=== PATIENT | female | born 1950 | race Native Hawaiian/Other Pacific Islander ===

== ENCOUNTER 2020-10-26 09:11 | Outpatient (CLI) | payer OTHER | END 2020-10-26 19:08 | disposition home or self-care (01) | LOC: MRI 09:11 | PROVIDERS: ATTEND Orthopaedic Surgery | DX: M47.812 Spondylosis without myelopathy or radiculopathy, cervical region (principal); M25.512 Pain in left shoulder ==

== ENCOUNTER 2021-08-06 10:42 | Outpatient (CLI) | payer OTHER | END 2021-08-06 20:48 | disposition home or self-care (01) | LOC: MRI 10:42 | PROVIDERS: ATTEND Orthopaedic Surgery Sports Medicine | DX: M75.42 Impingement syndrome of left shoulder (principal) ==